=== PATIENT | female | born 1945 | race Hispanic/Latino ===

== ENCOUNTER 2022-06-15 10:17 | Emergency (ER) | payer MEDICARE ==
[~2022-06-15] VITALS: Ht 162.6 cm; Wt 81.6 kg
[~2022-06-15 10:17] MED LIST: IOPAMIDOL 370 MG/ML 100 ML INFUS..BTL INJ ONE
[2022-06-15 10:55] VITALS: O2SAT 100
== END 2022-06-15 14:12 | disposition home or self-care (01) ==
LOC: ER 10:27
DX: M79.604 Pain in right leg (principal); I10 Essential (primary) hypertension; E11.9 Type 2 diabetes mellitus without complications; E78.5 Hyperlipidemia, unspecified
CPT/HCPCS: 73502; 73552; 99283; Q9967